=== PATIENT | female | born 1975 | race Hispanic/Latino ===

== ENCOUNTER 2020-02-02 06:18 | Emergency (ER) | payer SELFPAY ==
[2020-02-02 06:50] LABS: Absolute Lymphocytes (CBC) 2.7 K/uL (0.7-4.9); Basophils % 0.7 % (0-1.3); Hematocrit 35.6 % (36.0-45.0); MPV 9.8 fL (7.6-11.3); RBC Red Blood Cell Count 4.43 M/uL (3.86-4.86)
[2020-02-02 07:19] LABS: Urine Blood 3+ (NEG); Urine Glucose NEGATIVE (NEG); Urine Protein 1+ (NEG); Urine Specific Gravity >1.030 (1.005-1.030)
[2020-02-02 07:19] LABS: Urine Specific Gravity >1.030 (1.005-1.030)
[2020-02-02] MEDS ORDERED: KETOROLAC 30 MG/ML INJ ONE (07:21)
[2020-02-02] MEDS ORDERED: ONDANSETRON 4 MG/2 ML VIAL ONE (07:21)
[2020-02-02 07:23] LABS: ALT/SGPT 17 U/L (12-78); AST/SGOT 15 U/L (15-37); Albumin 3.1 g/dL (3.4-5.0); Alkaline Phosphatase 43 U/L (45-117); BUN Blood Urea Nitrogen 10 mg/dL (7-18); Bicarbonate 23 mmol/L (21-32); Bilirubin Direct < 0.1 mg/dL (0-0.2); Bilirubin Total 0.2 mg/dL (0.2-1.0); Glucose Level 145 mg/dL (74-106); Lipase 67 U/L (73-393); Potassium 3.4 mmol/L (3.5-5.1); Protein, Total 7.1 g/dL (6.4-8.2); Sodium Level 140 mmol/L (136-145)
--- NOTE | 2020-02-02 07:28 | RAD REPORT ---
EXAM DESCRIPTION: CT - Stone Protocol - 02/02/2020 7:06 am CLINICAL HISTORY: ABD PAIN COMPARISON: No comparisons TECHNIQUE: Axial 5 mm thick images were obtained without oral or IV contrast. The [id number] span s the entirety of the system including uppermost abdomen and lung bases. All CT scans are performed using dose optimization technique as appropriate and may include automated exposure control or mA/KV adjustment according to patient size. FINDINGS: Mild to moderate right-sided hydronephrosis is present secondary to a calcification in the right mid ureter. There is respiratory motion during the examination blurring the images at the leve l of the obstructing stone. This may be a single 5 millimeter stone or possibly 2 abutting 4-5 mm sto jaime. When viewed on a KUB projection the obstructing stone or stones are in proximity to the L4 right transverse process. Phleboliths are present. There is a 6 millimeter calcification in the right pelv is in proximity to the right ureter. This is probably not ureter in location. Between this calcificat ion and the obstructing mid ureter calcification the ureter is normal in size. No other obstructing or nonobstructing calculi. No suspicious renal masses. Isodense masses and pyelo nephritis are not excluded on a stone protocol CT scan. No significant adrenal finding. No urinary bl adder suspicious finding. Uterus and ovaries show no suspicious findings. Liver is normal in size. Multiple round low-density masses are present in the liver parenchyma. These are homogeneous fluid attenuation and are believed to be incidental cysts. Spleen and pancreas show no suspicious findings. No gallbladder or biliary tree abnormality identified. No suspicious bowel findings. No hernia, mass or bulky lymphadenopathy noted. No free air, free fluid or inflammatory stranding. No significant bony abnormality. IMPRESSION: Obstructing calcification present mid right ureter causing mild to moderate dilatation o f the proximal right collecting system. Exam has respiratory motion artifact blurring the images at the level of the obstructing calcificatio n. This could be a single 5 mm obstructing calculus or 2 abutting 4-5 mm calculi. When viewed from a KUB projection, the obstructing stone or stones are in proximity to the L4 right t ransverse process. Isodense masses and pyelonephritis are not excluded on stone protocol technique.
[2020-02-02] MEDS ORDERED: Magnesium Sulfate 2gm IVPB 2 G/50 ML BAG IV ONE (08:04)
[2020-02-02] MEDS ORDERED: TAMSULOSIN 0.4 MG SR CAP ONE (08:04)
--- NOTE | 2020-02-02 08:21 | ER ---
Nurse's Notes [facility] Name: Nataly Silverman Age: 44 yrs Sex: Female : 1975 Arrival Date: 02/02/2020 Time: 06:21 Bed 4 Private MD: Diagnosis: Calculus of ureter Presentation: 02/01 06:32 Chief complaint: Patient states: Reports she woke up with urinary frequency but could ea only urinate a little at a time. Pt reports after urinating her right lower abdomen started hurting and vomited bile x 1. Coronavirus screen: Proceed with normal triage. Ebola Screen: No symptoms or risks identified at this time. Initial Sepsis Screen: Does the patient meet any 2 criteria? No. Patient's initial sepsis screen is negative. Does the patient have a suspected source of infection? No. Patient's initial sepsis screen is negative. Risk Assessment: Do you want to hurt yourself or someone else? Patient reports no desire to harm self or others. Onset of symptoms was February 02, 2020. 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 - Social history:: Smoking status: Patient denies any tobacco usage or history of. Screenin:35 Abuse screen: Denies threats or abuse. Nutritional screening: No deficits noted. ea Tuberculosis screening: No symptoms or risk factors identified. Fall Risk None identified. Assessment: 06:36 General: Appears uncomfortable, Behavior is calm, cooperative, appropriate for age. ea Pain: Complains of pain in right lower quadrant. Neuro: Level of Consciousness is awake, alert, obeys commands, Oriented to person, place, time, situation. Cardiovascular: Patient's skin is warm and dry. Respiratory: Airway is patent Respiratory effort is even, unlabored, Respiratory pattern is regular, symmetrical. Derm: Skin is pink, warm \T\ dry. 07:10 General: Appears in no apparent distress. comfortable, Behavior is calm, cooperative. rb1 Pain: Complains of pain in right lower quadrant Pain currently is 4 out of 10 on a pain scale. Pain began 0530 this morning. Neuro: Level of Consciousness is awake, alert, obeys commands, Oriented to person, place, time, situation. Cardiovascular: Patient's skin is warm and dry. Respiratory: Airway is patent Respiratory effort is even, unlabored, Respiratory pattern is regular, symmetrical. GI: Reports nausea. : No signs and/or symptoms were reported regarding the genitourinary system. 08:00 Reassessment: Patient appears in no apparent distress at this time. Patient and/or rb1 family updated on plan of care and expected duration. Pain level reassessed. Patient is alert, oriented x 3, equal unlabored respirations, skin warm/dry/pink. Patient states symptoms have improved. 08:22 Reassessment: Discharge pending due to Magnesium infusing. rb1 09:09 Reassessment: Patient appears in no apparent distress at this time. No changes from rb1 previously documented assessment. Vital Signs: 06:32 BP 153 / 64; Pulse 64; Resp 18; Temp 97.4; Pulse Ox 100% ; Weight 58.97 kg; Height 5 ea ft. 2 in. (157.48 cm); Pain 9/10; 07:30 BP 140 / 86; Pulse 62; Resp 17; Pulse Ox 99% ; rb1 08:30 BP 112 / 80; Pulse 69; Resp 16; Pulse Ox 100% ; rb1 09:08 BP 107 / 68; Pulse 67; Resp 17; Pulse Ox 97% ; rb1 06:32 Body Mass Index 23.78 (58.97 kg, 157.48 cm) ea ED Course: 06:21 Patient arrived in ED. ds1 06:24 Gauri Monson FNP-C is PHCP. kb 06:24 Eliezer Dick MD is Attending Physician. kb 06:34 Triage completed. ea 06:35 Arm band placed on right wrist. Patient placed in an exam room, on a stretcher, on ea pulse oximetry. 06:35 Patient has correct armband on for positive identification. Bed in low position. Call ea light in reach. Side rails up X 1. Pulse ox on. NIBP on. 06:41 Inserted saline lock: 20 gauge in right antecubital area, using aseptic technique. ds4 Blood collected. 06:58 Basic Metabolic Panel Sent. ds4 06:58 Hepatic Function Sent. ds4 06:59 Lipase Sent. ds4 06:59 Urine Dipstick--Ancillary (enter results) Sent. ds4 07:00 Urine Dipstick--Ancillary (enter results) Sent. ds4 07:00 Urine Dipstick--Ancillary (enter results) Sent. ds4 07:00 Urine --Ancillary (enter results) Sent. ds4 07:06 CT Stone Protocol In Process Unspecified. EDIA 07:12 Priyanka Douglas, RN is Primary Nurse. rb1 09:09 No provider procedures requiring assistance completed. IV discontinued, intact, rb1 bleeding controlled, No redness/swelling at site. Pressure dressing applied. Administered Medications: 07:21 Drug: TORadol - Ketorolac 15 mg Route: IVP; Site: right antecubital; rb1 07:35 Follow up: Response: No adverse reaction; Pain is decreased rb1 07:21 Drug: Zofran (Ondansetron) 4 mg Route: IVP; Site: right antecubital; rb1 07:35 Follow up: Response: No adverse reaction; Nausea is decreased rb1 08:06 Drug: Magnesium Sulfate 2 grams Route: IVPB; Infused Over: 1 hrs; Site: right rb1 antecubital; 09:03 Follow up: IV Status: Completed infusion rb1 08:06 Drug: Flomax 0.4 mg Route: PO; rb1 08:37 Follow up: Response: No adverse reaction rb1 08:33 Drug: morphine 4 mg Route: IVP; Site: right antecubital; rb1 08:48 Follow up: Response: No adverse reaction; Pain is decreased rb1 Outcome: 08:21 Discharge ordered by . kb 09:09 Discharged to home via wheelchair, with family. rb1 09:09 Condition: stable 09:09 Discharge instructions given to patient, Instructed on discharge instructions, follow up and referral plans. medication usage, Demonstrated understanding of instructions, follow-up care, medications, Prescriptions given X 3. 09:10 Patient left the ED. rb1 Signatures: Dispatcher [employer] EDMS Gauri Monson, NEUROSURGICAL PHYSICIAN ASSISTANTMelissaC NEUROSURGICAL PHYSICIAN ASSISTANT-Bertha Carter ds1 Mike Nova ds4 Priyanka Douglas, RN RN rb1 Zamzam Burgess RN RN ea
--- NOTE | 2020-02-02 08:22 | EDPHYS ---
Physician Documentation [facility] Name: Nataly Silverman Age: 44 yrs Sex: Female : 1975 Arrival Date: 02/02/2020 Time: 06:21 Bed 4 Private MD: ED Physician Eliezer Dick HPI: 02/01 06:54 This 44 yrs old Female presents to ER via Ambulatory with complaints of Lower kb abd Pain. 06:55 The patient presents with abdominal pain in the right upper quadrant, right lower kb quadrant. Onset: The symptoms/episode began/occurred this morning. The symptoms do not radiate. Associated signs and symptoms: Pertinent positives: nausea and vomiting, urinary frequency, but only small amounts. The symptoms are described as achy. Modifying factors: The symptoms are alleviated by nothing, the symptoms are aggravated by nothing. Severity of pain: At its worst the pain was moderate in the emergency department the pain is unchanged. The patient has not experienced similar symptoms in the past. The patient has not recently seen a physician. 07:00 Pt woke up with right lateral abd pain, urinary frequency with small amounts, nausea kb and vomiting x1. Denies fever. . 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 - Social history:: Smoking status: Patient denies any tobacco usage or history of. ROS: 06:51 Constitutional: Negative for fever, chills, and weight loss, Neck: Negative for injury, kb pain, and swelling, Cardiovascular: Negative for chest pain, palpitations, and edema, Respiratory: Negative for shortness of breath, cough, wheezing, and pleuritic chest pain, Back: Negative for injury and pain, MS/Extremity: Negative for injury and deformity, Skin: Negative for injury, rash, and discoloration, Neuro: Negative for headache, weakness, numbness, tingling, and seizure. 06:51 Abdomen/GI: Positive for abdominal pain, of the anterior aspect of right lateral abdomen. 06:51 : Positive for urinary frequency, small amounts. Exam: 06:51 Constitutional: This is a well developed, well nourished patient who is awake, alert, kb and in no acute distress. Head/Face: Normocephalic, atraumatic. Chest/axilla: Normal chest wall appearance and motion. Nontender with no deformity. No lesions are appreciated. Cardiovascular: Regular rate and rhythm with a normal S1 and S2. No gallops, murmurs, or rubs. Normal PMI, no JVD. No pulse deficits. Respiratory: Lungs have equal breath sounds bilaterally, clear to auscultation and percussion. No rales, rhonchi or wheezes noted. No increased work of breathing, no retractions or nasal flaring. Back: No spinal tenderness. No costovertebral tenderness. Full range of motion. Skin: Warm, dry with normal turgor. Normal color with no rashes, no lesions, and no evidence of cellulitis. MS/ Extremity: Pulses equal, no cyanosis. Neurovascular intact. Full, normal range of motion. Neuro: Awake and alert, GCS 15, oriented to person, place, time, and situation. Cranial nerves II-XII grossly intact. Motor strength 5/5 in all extremities. Sensory grossly intact. Cerebellar exam normal. Normal gait. 06:51 Abdomen/GI: Inspection: abdomen appears normal, Bowel sounds: normal, in all quadrants, Palpation: soft, in all quadrants, mild abdominal tenderness, in the anterior aspect of right lateral abdomen and right upper quadrant. Vital Signs: 06:32 BP 153 / 64; Pulse 64; Resp 18; Temp 97.4; Pulse Ox 100% ; Weight 58.97 kg; Height 5 ea ft. 2 in. (157.48 cm); Pain 9/10; 07:30 BP 140 / 86; Pulse 62; Resp 17; Pulse Ox 99% ; rb1 08:30 BP 112 / 80; Pulse 69; Resp 16; Pulse Ox 100% ; rb1 09:08 BP 107 / 68; Pulse 67; Resp 17; Pulse Ox 97% ; rb1 06:32 Body Mass Index 23.78 (58.97 kg, 157.48 cm) ea MDM: 06:24 Patient medically screened. kb 06:54 Data reviewed: vital signs, nurses notes. Data interpreted: Pulse oximetry: on room air kb is 100 %. Interpretation: normal. 08:21 Counseling: I had a detailed discussion with the patient and/or guardian regarding: the kb historical points, exam findings, and any diagnostic results supporting the discharge/admit diagnosis, lab results, radiology results, the need for outpatient follow up, a urologist, to return to the emergency department if symptoms worsen or persist or if there are any questions or concerns that arise at home. 02/01 06:32 Order name: Basic Metabolic Panel; Complete Time: 07:25 kb 02/01 06:32 Order name: CBC with Diff; Complete Time: 06:55 kb 02/01 06:32 Order name: Hepatic Function; Complete Time: 07:25 kb 02/01 06:32 Order name: Lipase; Complete Time: 07:25 kb 02/01 06:58 Order name: Urine Dipstick--Ancillary (enter results); Complete Time: 07:21 ds4 02/01 06:59 Order name: Urine --Ancillary (enter results); Complete Time: 07:21 ds4 02/01 06:32 Order name: IV Saline Lock; Complete Time: 06:57 kb 02/01 06:32 Order name: Labs collected and sent; Complete Time: 06:57 kb 02/01 06:32 Order name: CT Stone Protocol; Complete Time: 07:35 kb 02/01 06:32 Order name: Urine Dipstick-Ancillary (obtain specimen); Complete Time: 06:57 kb Administered Medications: 07:21 Drug: TORadol - Ketorolac 15 mg Route: IVP; Site: right antecubital; rb1 07:35 Follow up: Response: No adverse reaction; Pain is decreased rb1 07:21 Drug: Zofran (Ondansetron) 4 mg Route: IVP; Site: right antecubital; rb1 07:35 Follow up: Response: No adverse reaction; Nausea is decreased rb1 08:06 Drug: Magnesium Sulfate 2 grams Route: IVPB; Infused Over: 1 hrs; Site: right rb1 antecubital; 09:03 Follow up: IV Status: Completed infusion rb1 08:06 Drug: Flomax 0.4 mg Route: PO; rb1 08:37 Follow up: Response: No adverse reaction rb1 08:33 Drug: morphine 4 mg Route: IVP; Site: right antecubital; rb1 08:48 Follow up: Response: No adverse reaction; Pain is decreased rb1 Disposition: 17:38 Co-signature as Attending Physician, Eliezer Dick MD I agree with the assessment and tw4 plan of care. Disposition: 02/02/20 08:21 Discharged to Home. Impression: Calculus of ureter. - Condition is Stable. - Discharge Instructions: Kidney Stones, Dyty-ya-Ikjs, Dietary Guidelines to Help Prevent Kidney Stones. - Prescriptions for Zofran 4 mg Oral Tablet - take 1 tablet by ORAL route every 6 hours As needed; 20 tablet. Flomax 0.4 mg Oral Capsule, Sust. Release 24 hr - take 1 capsule by ORAL route once daily; 10 capsule. Diclofenac Sodium 75 mg Oral Tablet, Delayed Release (E.C.) - take 1 tablet by ORAL route 2 times per day As needed; 30 tablet. - Medication Reconciliation Form, Thank You Letter, Antibiotic Education, Prescription Opioid Use form. - Follow up: Emergency Department; When: As needed; Reason: Worsening of condition. Follow up: Private Physician; When: 2 - 3 days; Reason: Recheck today's complaints, Continuance of care, Re-evaluation by your physician. Signatures: Dispatcher [employer] EDGauri Hoffmann, SHAWN-C COMMERCIAL LOAN ASSISTANT-CkPriyanka Patino, RN RN rb1 Zamzam Burgess RN RN ea Wadley, Terrence, MD MD tw4 Corrections: (The following items were deleted from the chart) 09:10 08:21 02/02/2020 08:21 Discharged to Home. Impression: Calculus of ureter. Condition is rb1 Stable. Forms are Medication Reconciliation Form, Thank You Letter, Antibiotic Education, Prescription Opioid Use. Follow up: Emergency Department; When: As needed; Reason: Worsening of condition. Follow up: Private Physician; When: 2 - 3 days; Reason: Recheck today's complaints, Continuance of care, Re-evaluation by your physician. kb
[2020-02-02] MEDS ORDERED: MORPHINE 4 MG/ML SYR ONE (08:38)
[2020-02-02 09:19] VITALS: TEMP 97.4
[2020-02-02 09:23] VITALS: BP 107/68; O2SAT 97
== END 2020-02-02 09:10 | disposition home or self-care (01) ==
LOC: ER 06:18
DX: N20.1 Calculus of ureter (principal)
CPT/HCPCS: 36415; 74176; 76377; 80048; 80076; 81003; 81025; 83690; 85025; 96365; 96375; 99284; J2405; J3475

== ENCOUNTER 2020-02-05 22:33 | Emergency (ER) | payer SELFPAY ==
--- OUTSIDE RECORDS SUMMARY | 2020-02-05 22:35 | XMS REPORT | Summary of Care ---
:1975 Author Organization [facility] Address [address] [place] [id number] Care Team Providers Name Role Phone Lia Faith [facility] Primary Care Provider [phone] Reason for Visit Reason Comments NURSE VISIT Encounter Details Date Type Department Care Team Description 12/19/2019 Nurse Visit [facility]- Donovan Faith, [facility] [address] [place] [address] Other general [place] Visit, [facility] Nurse counseling and advice [address] [facility] [place] management [id number] Allergies No Known Allergiesdocumented as of this encounter (statuses as of 12/19/2019) Medications Medication Sig Dispensed Refills Start Date End Date Status metroNIDAZOLE 500 mg Take 1 tablet by 14 tablet 0 09/02/2019 Active tabletIndications: BV mouth 2 (two) (bacterial vaginosis) times daily. norgestimate-ethinyl Take 1 tablet by 3 Package 0 12/19/2019 Active estradiol (ORTHO mouth daily. TRI-CYCLEN, 28,) 0.18/0.215/0.25 mg-35 mcg (28) tabletIndications: control counseling documented as of this encounter (statuses as of 12/19/2019) Active Problems Problem Noted Date Other general counseling and advice for contraceptive management 09/02/2019 Amenorrhea 08/15/2019 Abnormal vaginal bleeding 07/30/2017 documented as of this encounter (statuses as of 12/19/2019) Resolved Problems Problem Noted Date Resolved Date Unsatisfactory cervical Papanicolaou smear 12/23/2017 01/10/2019 Screening for STDs (sexually transmitted diseases) 5 07/30/2017 Other malaise and fatigue 03/01/2015 07/30/2017 Encounter for routine gynecological examination 03/01/2015 07/30/2017 Overview: ICD10 Diagnosis Term Bottled Beverage Inspector Utility Surveillance of previously prescribed contraceptive method 0 03/01/2015 07/30/2017 Overview: ICD10 Diagnosis Term Bottled Beverage Inspector Utility Breast pain 11/17/2014 03/01/2015 documented as of this encounter (statuses as of 12/19/2019) Immunizations Name Administration Dates Next Due Rubella 01/01/2005 Td 09/14/2001 Tdap 02/17/2014 documented as of this encounter Social History Tobacco Use Types Packs/Day Years Used Date Never Smoker Smokeless Tobacco: Never Used Alcohol Use Drinks/Week oz/Week Comments No Sex Assigned at Date Recorded Not on file Job Start Date Occupation Industry Not on file Not on file Not on file Travel History Travel Start Travel End No recent travel history available. documented as of this encounter Last Filed Vital Signs Not on filedocumented in this encounter Patient Instructions Patient InstructionsAfsaneh Roblero LVN - 12/19/2019 8:30 AM CDT Patient Education Control de la natalidad: La pldora anticonceptiva Las pldoras anticonceptivas contienen hormonas que ayudan a prevenir el embarazo impidiendo que los ovarios liberen el vulo pawel. Las pldoras se consiguen con receta de un proveedor de atencin mdica. Hay muchos tipos de pldoras anticonceptivas; si usted tiene efectos secundarios con cierta pldora, hable con mack proveedor de atencin mdica para que le receten jeane pldora que funcione mejor para usted. Tasa de embarazo Hable con mack proveedor de atencin mdica acerca de la eficacia de kvng mtodo de control de la natalidad. Financial Services Sales Representative usar la pldora Tmese jeane pldora diaria, a aproximadamente la misma hora todos los reina. Siga las recomendaciones de mack proveedor de atencin mdica sobre cundo comenzar mack primer paquete de pldoras. Es posible que al principio tenga que usar otro mtodo de control de la natalidad por jeane semana o ms. Sepa lo que debe hacer si se le olvida tomarse jeane pldora. (Consulte con mack proveedor de atencin mdica o dominique las indicaciones del envase.) Si se salta ms de jeane pldora, paras vez necesite usar un mtodo adicional de control de la natalidad por jeane semana o ms. Ventajas [place]aja tasa de embarazo. No se interrumpe el acto sexual. Fcil de usar. Puede ayudar a regularizar las menstruaciones. Puede reducir el riesgo de quistes ovricos y ciertos tipos de cncer. Puede aliviar los clicos menstruales, reducir el flujo menstrual y mejorar el acn. Desventajas No ofrece proteccin contra las enfermedades de transmisin sexual (ETS). El mtodo requiere betzy jeane pldora puntualmente todos los reina. Paras vez sea menos eficaz si se efraín con otros medicamentos. Consulte con mack farmacutico. Puede producir efectos secundarios torie nuseas, aumento de peso, sensibilidad en los senos, cansancio o cambios en el estado de sandhya. (Generalmente estos sntomas desaparecen al cabo de yanni meses.) Puede aumentar el riesgo de cogulos de alexia, ataque al corazn o ataque al cerebro. Betzy la pldora podra no ser lo ms indicado para usted si Fuma y tiene ms de 35 aos. Tiene hipertensin o jeane enfermedad de la vescula biliar, el hgado o el corazn. Tiene diabetes, migraas, sangrado o problemas de las venas. (En estos casos, usted debe hablar de los riesgos con mack mdico.) [id number] [employer] [place] [address]. Todos los derechos reservados. Esta informacin no pretende sustituir la atencin mdica profesional. Slo mack mdico puede diagnosticar y tratar un problema de kathleen. documented in this encounter Progress Notes Afsaneh Roblero LVN - 12/19/2019 8:30 AM CDTPatient desires to continue with OCP for contraception. OCP was given by drive through method without obtaining vital signs per institutional guidelines for patients with no significant medical historyor risk factors due to weather (COVID-19). Patient denies headaches, visual disturbances, or SOB. I have also reviewed use, side effects and effectiveness of this control method. Patient verbalized no side effects at this time and desires to continue with method. Constitutional: Alert and no distress Respiratory: Breathing comfortably Neurology: Answers questions appropriately Psychological: Affect Normal Patient present in clinic for OCP refill. Dispensed OCPs from clinic stock x 6 Name: Tri-Previfem LOT: [id number] Cont:883- [id number] Exp:07/2021. Patient provided with education both written and verbal on control method chosen. Instructed patient to use a back up method for one month. Educated patient to RTC in 6 months for refill/WWE visit. Patient verbalized understanding. documented in this encounter Plan of Treatment Date Type Specialty Care Team Description 02/22/2020 Office Visit [facility] Devon Faith, [facility] [address] [id number] 15 [phone] Health Maintenance Due Date Last Done Comments Breast Cancer Screening 10/02/2016 10/02/2015 (MAMMOGRAM) INFLUENZA VACCINE (#1) 2020 Postponed from 05/15/2019 (Refu sed) PAP SMEAR 01/20/2021 01/20/2018, 11/18/2017, 02/17/2014, Additional history exists DTaP,Tdap,and Td Vaccines 02/18/2024 02/17/2014, 09/14/2001 (2 - Td) PNEUMOCOCCAL 0-64 YEARS Aged Out No longe r eligible COMBINED SERIES based on patient 's age to complete this topic documented as of this encounter Results Not on filedocumented in this encounter Visit Diagnoses Diagnosis Other general counseling and advice for contraceptive management documented in this encounter Insurance Payer Benefit Plan / Subscriber ID Effective Dates Phone Addre ss Type Group [facility] PLANNING [id number] 2019-[place] [employer] PLANNING KIARRA KIARRA [phone]% ent [id number] [place] [address] documented as of this encounter Advance Directives Name Relationship Healthcare Agent Relationship Co mmunication Enzoclaudio PabonSenthil Spouse Primary healthcare agent Bonita Silverman Mother Primary healthcare agent
--- OUTSIDE RECORDS SUMMARY | 2020-02-05 22:35 | XMS REPORT | Summary of Care ---
:1975 Author Organization [facility] Address [address] [place] [id number] Care Team Providers Name Role Phone Lia Faith [facility] Primary Care Provider [phone] Reason for Visit Reason Comments Appointment tele Encounter Details Date Type Department Care Team Description 12/19/2019 Telephone [facility]- Lia Faith, Appointment (tele) [facility] [address] [id number] [facility] [phone] [place], [place] [address] [phone] Allergies No Known Allergiesdocumented as of this encounter (statuses as of 12/19/2019) Medications Medication Sig Dispensed Refills Start Date End Date Status norgestimate-ethinyl Take 1 tablet by 3 Package 0 08/15/2019 Active estradiol (ORTHO mouth daily. TRI-CYCLEN, 28,) 0.18/0.215/0.25 mg-35 mcg (28) tabletIndications: control counseling metroNIDAZOLE 500 mg Take 1 tablet by 14 tablet 0 09/02/2019 Active tabletIndications: BV mouth 2 (two) (bacterial vaginosis) times daily. 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 Utility Surveillance of previously prescribed contraceptive method 0 03/01/2015 07/30/2017 Overview: ICD10 Diagnosis Term Supervisor Silvering Department Utility Breast pain 11/17/2014 03/01/2015 documented as [...] Signs Not on filedocumented in this encounter Plan of Treatment Health Maintenance Due Date Last Done Comments [...] Results Not on filedocumented in this encounter Insurance Payer Benefit Plan / Subscriber ID Effective Dates Phone Addre ss Type Group [facility] FAMILY FAMILY PLANNING [id number] 2019-[place] PLANNING KIARRA KIARRA [phone] ent [id number] [place] [address] documented as of this encounter Advance Directives Name Relationship Healthcare Agent Relationship Co mmunication Enzoclaudio Ndiaye Spouse Primary healthcare agent Bonita Silverman Mother Primary healthcare agent [phone] (Clarence)
--- OUTSIDE RECORDS SUMMARY | 2020-02-05 22:35 | XMS REPORT | Summary of Care ---
:1975 Author Organization [facility] Address [address] [place] [address] Care Team Providers Name Role Phone Lia Faith [facility] Primary Care Provider Reason for Visit Reason Comments CONTROL televisit Encounter Details Date Type Department Care Team Description 12/19[facility] Ot er general counseling and advice for contraceptive management (Primary Dx); Zia Boss, control counseling [address] [place], [place] [address] [phone] [place] [address] Allergies No Known Allergiesdocumented as of this encounter (statuses as of 12/19/2019) Medications Medication Sig Dispensed Refills Start Date End Date Status metroNIDAZOLE 500 Take 1 14 tablet 0 09/02/2019 A ctive mg tablet by tabletIndications: mouth 2 BV (bacterial (two) times vaginosis) daily. norgestimate-ethiny Take 1 3 Package 0 12/19/2019 Active l estradiol (ORTHO tablet by TRI-CYCLEN, 28,) mouth daily. 0.18/0.215/0.25 mg-35 mcg (28) tabletIndications: control counseling norgestimate-ethiny Take 1 3 Package 0 08/15/2019 Discontinued l estradiol (ORTHO tablet by 0 ( Reorder) TRI-CYCLEN, 28,) mouth daily. 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 Communication with patient was conducted via Telephone. Location of Patient: Home Location of Provider: Clinic Date of Service: 12/19/2019 Chief Complaint: control HPI: Nataly Silverman is a 44 year old female with Past Medical History: Diagnosis Date Amenorrhea 08/15/2019 Anemia Screening for STDs (sexually transmitted diseases) 03/01/2015 The patient visit was conducted today via telehealth. She reports she desires to continue her ocp. She reports she took her last pill on Thursday and she reports she is due for her menses to start on this week. She reports her last intercourse was this past Thursday. She denies having any issues or concerns today. MEDICATIONS: Current Outpatient Medications Medication Sig Dispense Refill norgestimate-ethinyl estradiol (ORTHO TRI-CYCLEN, 28,) 0.18/0.215/0.25 mg-35 mcg (28) tablet Take 1 tablet by mouth daily. 3 Package 0 metroNIDAZOLE 500 mg tablet Take 1 tablet by mouth 2 (two) times daily. 14 tablet 0 No current facility-administered medications for this visit. ROS Constitutional: negative Eyes: negative Ears: negative Nose/Sinuses: negative Mouth/Throat: negative Cardiovascular: negative Respiratory: negative Gastrointestinal: negative Genitourinary: negative Musculoskeletal: negative Integumentary: negative Neuro: negative Psych: negative Endocrine: negative Hem/Lymph: negative Allergy/Immunology: negative TELEHEALTH EXAM Constitutional: alert and in no distress Respiratory: breathing comfortably Neuro: answers questions appropriately Psych: normal affect ASSESSMENT/ PLAN Nataly Silverman is a 44 year old female with PMH as above presenting with: Other general counseling and advice for contraceptive management (primary encounter diagnosis) Comment: as ordered future complete when patient arrives to collect control Plan: POCT TEST, control counseling Comment: as ordered Plan: norgestimate-ethinyl estradiol (ORTHO TRI-CYCLEN, 28,) 0.18/0.215/0.25 mg-35 mcg (28) tablet After visit summary (AVS ) documentation will be available through [email or web address] for this encounter. A total of 4 minutes was spent on the Telephone with the patient. EMILY Pina documented in this encounter Plan of Treatment Date Type Specialty Care Team Description 02/22/2020 Office Visit [facility] Devon Faith [facility] [address] [place], [place] [address] [phone] Name Type Priority Associated Diagnoses Order S chedule POCT TEST LAB Routine Other it generalist ing and Expected: 12/19/2019, advice for contraceptive Exp ires: 01/18/2020 management Health Maintenance Due Date Last Done Comments [...] general counseling and advice for contraceptive management - Primary control counseling General counseling for initiation of oth er contraceptive measures documented in this encounter Insurance Payer Benefit Plan / Subscriber ID Effective Dates Phone Addre ss Type Group [facility] FAMILY FAMILY PLANNING [id number] 2019-Pres [place] Agency PLANNING KIARRA KIARRA [phone] ent [id number] [place] [address] documented as of this encounter Advance Directives Name Relationship Healthcare Agent Relationship Co mmunication Carrington Ndiaye Spouse Primary healthcare agent Bonita Silverman Mother Primary healthcare agent
--- OUTSIDE RECORDS SUMMARY | 2020-02-05 22:35 | XMS REPORT ---
:1975 Author Organization [facility] t Address [address] [place] [address] Care Team Providers Name Role Phone Visit, Phong Nurse Attending Clinician Unavailable Gera Todd Attending Clinician Problems This patient has no known problems. Allergies, Adverse Reactions, Alerts This patient has no known allergies or adverse reactions. Medications This patient has no known medications. Procedures This patient has no known procedures. Encounters Start End Encounter Admission Attending Care Care Encounter Source Date/Time Date/Time Type Type Clinicians Facility Department ID 2019-12-19 2019-12-19 Nurse Visit, [facility] [id number] 15:16:06 15:31:06 Visit Phong MANAGER ARCHITECTURAL [id number] Nurse REGIONAL [id number] MATERNAL [id number] & CHILD 107 [facility] 2019-12-19 2019-12-19 Telemedici Marcell [facility] [id number] 08:18:49 11:19:59 ne Visit Lia Boss MANAGER ARCHITECTURAL [id number] REGIONAL [id number] MATERNAL [phone] & CHILD 107 [facility] 2019-12-19 2019-12-19 Telephone Marcell ALRODNEY [id number] 00:00:00 00:00:00 Lia C MANAGER ARCHITECTURAL [id number] REGIONAL [id number] MATERNAL [id number] & CHILD 107 [facility] 2019-09-28 2019-09-28 Telephone MCKENNA Faith [id number] 00:00:00 00:00:00 Lia Boss MANAGER ARCHITECTURAL [id number] REGIONAL [id number] MATERNAL [id number] & CHILD 107 [facility] Results This patient has no known results.
[2020-02-05] MEDS ORDERED: KETOROLAC 30 MG/ML INJ ONE (23:31)
[2020-02-05 23:52] LABS: Urine Appearance CLEAR; Urine Bilirubin NEGATIVE (NEG); Urine Blood TRACE (NEG); Urine Color YELLOW; Urine Glucose NEGATIVE (NEG); Urine Protein NEGATIVE (NEG); Urine Specific Gravity <=1.005 (1.005-1.030); Urine Urobilinogen 0.2 mg/dL (0.2-1.0); Urine pH 7.5 (5.0-7.0)
[2020-02-05 23:55] LABS: Absolute Lymphocytes (CBC) 1.2 K/uL (0.7-4.9); Basophils % 0.4 % (0-1.3); Hematocrit 35.7 % (36.0-45.0); MPV 9.7 fL (7.6-11.3); RBC Red Blood Cell Count 4.46 M/uL (3.86-4.86)
[2020-02-05 23:55] LABS: Urine Microscopic Reflex ORDER UMIC
[2020-02-06 00:11] LABS: Urine Blood TRACE (NEG); Urine Glucose NEGATIVE (NEG); Urine Protein NEGATIVE (NEG)
[2020-02-06 01:34] LABS: Urine Bacteria <20 /HPF (<20); Urine Culture Reflex Order NOT NEEDED; Urine RBC <5 /HPF (NONE SEEN)
[2020-02-06 01:50] LABS: Potassium 3.5 mmol/L (3.5-5.1)
--- NOTE | 2020-02-06 02:17 | ER ---
Nurse's Notes [facility] Name: Nataly Silverman Age: 44 yrs Sex: Female : 1975 Arrival Date: 02/05/2020 Time: 22:35 Bed 15 Private MD: Diagnosis: Unspecified renal colic Presentation: 02/04 22:48 Chief complaint: Patient states: Seen here on and diagnosed with kidney stone; lp1 States pain severe tonight to RLQ radiating to right flank; No improvement to pain with medications prescribed. Coronavirus screen: Proceed with normal triage. Ebola Screen: No symptoms or risks identified at this time. 22:48 Method Of Arrival: Wheelchair lp1 22:51 Initial Sepsis Screen: Does the patient meet any 2 criteria? No. Patient's initial lp1 sepsis screen is negative. Does the patient have a suspected source of infection? No. Patient's initial sepsis screen is negative. Risk Assessment: Do you want to hurt yourself or someone else? Patient reports no desire to harm self or others. Onset of symptoms was February 05, 2020 at 20:00. 22:51 Acuity: SURAJ 3 lp1 Triage Assessment: 02/03 23:00 General: Appears in no apparent distress. Behavior is calm, cooperative, appropriate vc for age. Pain: Complains of pain in right low back and right mid back Pain radiates to suprapubic area. Cardiovascular: Capillary refill < 3 seconds Patient's skin is warm and dry. 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 - Social history:: Smoking status: Patient denies any tobacco usage or history of. - Family history:: not pertinent. Screenin:51 Abuse screen: Denies threats or abuse. Denies injuries from another. Nutritional lp1 screening: No deficits noted. Tuberculosis screening: No symptoms or risk factors identified. Fall Risk None identified. Assessment: 23:00 General: Appears in no apparent distress. uncomfortable, Behavior is calm, cooperative, vc appropriate for age. Pain: Complains of pain in right low back and right mid back Pain radiates to suprapubic area Pain currently is 7 out of 10 on a pain scale. Neuro: Level of Consciousness is awake, alert, obeys commands, Oriented to person, place, time, situation, Appropriate for age. Cardiovascular: Capillary refill < 3 seconds Patient's skin is warm and dry. Respiratory: Airway is patent Respiratory effort is even, unlabored, Respiratory pattern is regular, symmetrical. GI: No signs and/or symptoms were reported involving the gastrointestinal system. : Reports pain flank(s), in lower back. 02/05 03:03 Reassessment: Patient appears in no apparent distress at this time. Patient is alert, lp1 oriented x 3, equal unlabored respirations, skin warm/dry/pink. Patient denies pain at this time. Patient states feeling better. Patient states symptoms have improved. Vital Signs: 02/04 22:48 BP 136 / 87; Pulse 79; Resp 18; Pulse Ox 100% on R/A; Pain 8/10; lp1 02/05 03:03 BP 117 / 76; Pulse 76; Resp 18; Temp 97.3; Pulse Ox 100% on R/A; Pain 0/10; lp1 ED Course: 02/03 22:00 Inserted saline lock: 20 gauge in right antecubital area, using aseptic technique. vc Blood collected. Patient maintains SpO2 saturation greater than 95% on room air. 02/04 22:35 Patient arrived in ED. cl3 22:50 Arm band placed on. lp1 22:51 Triage completed. lp1 23:00 Patient has correct armband on for positive identification. Bed in low position. Call vc light in reach. Pulse ox on. NIBP on. 23:09 Sixto Nam DO is Attending Physician. ms3 23:19 Kailey Bender RN is Primary Nurse. vc 02/05 02:12 Report received from YULISA Bonner. lp1 02:16 Laly Reyes MD is Referral Physician. ms3 02:51 No provider procedures requiring assistance completed. lp1 03:03 IV discontinued, No redness/swelling at site. Pressure dressing applied. lp1 Administered Medications: 02/04 23:30 Drug: TORadol - Ketorolac 15 mg Route: IVP; Site: right antecubital; vc 23:44 Follow up: Response: No adverse reaction; Pain is decreased vc Outcome: 02/05 02:16 Discharge ordered by MD. ms3 03:04 Discharged to home ambulatory. lp1 03:04 Condition: good 03:04 Discharge instructions given to patient, Instructed on discharge instructions, follow up and referral plans. Demonstrated understanding of instructions, follow-up care. 03:04 Patient left the ED. lp1 Signatures: Parris Talamantes RN RN lp1 Anshu Avila cl3 Kailey Bender RN RN vc Sixto Nam DO DO ms3
--- NOTE | 2020-02-06 02:17 | EDPHYS ---
Physician Documentation [facility] Name: Nataly Silverman Age: 44 yrs Sex: Female : 1975 Arrival Date: 02/05/2020 Time: 22:35 Bed 15 Private MD: ED Physician Sixto Nam HPI: 02/04 23:18 This 44 yrs old Female presents to ER via Wheelchair with complaints of Flank ms3 Pain dx with Right kidney stone on . 23:18 The patient complains of pain in the right mid back. The patient complains of pain in ms3 the right low back. The pain does not radiate. Onset: The symptoms/episode began/occurred acutely, 4 day(s) ago. Modifying factors: The symptoms are alleviated by nothing. the symptoms are aggravated by nothing. Associated signs and symptoms: The patient has no apparent associated signs or symptoms. Severity of pain: At its worst the pain was moderate in the emergency department the pain has improved. 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 - Social history:: Smoking status: Patient denies any tobacco usage or history of. - Family history:: not pertinent. ROS: 23:18 Constitutional: Negative for fever, and chills. Eyes: Negative for injury, pain, ms3 redness, and discharge, ENT: Negative for injury, pain, and discharge, Neck: Negative for injury, pain, and swelling, Cardiovascular: Negative for chest pain, and palpitations. Respiratory: Negative for shortness of breath, cough, wheezing, and pleuritic chest pain, Back: Negative for injury and pain, MS/Extremity: Negative for injury and deformity, Skin: Negative for injury, rash, and discoloration, Neuro: Negative for headache, weakness, numbness, tingling. Psych: Negative for depression, anxiety, suicide ideation, homicidal ideation, and hallucinations. 23:18 All other systems are negative. Exam: 23:18 Constitutional: This is a well developed, well nourished patient who is awake, alert, ms3 and in no acute distress. Head/Face: Normocephalic, atraumatic. Eyes: Pupils equal round and reactive to light, extra-ocular motions intact. Lids and lashes normal. Conjunctiva and sclera are non-icteric and not injected. Cornea within normal limits. Periorbital areas with no swelling, redness, or edema. Neck: Trachea midline, no cervical lymphadenopathy. Supple, full range of motion without nuchal rigidity, or vertebral point tenderness. No Meningismus. Cardiovascular: Regular rate and rhythm with a normal S1 and S2. No gallops, murmurs, or rubs. Normal PMI, no JVD. No pulse deficits. Respiratory: Lungs have equal breath sounds bilaterally, clear to auscultation and percussion. No rales, rhonchi or wheezes noted. No increased work of breathing, no retractions or nasal flaring. Abdomen/GI: Soft, non-tender, with normal bowel sounds. No distension or tympany. No guarding or rebound. No evidence of tenderness throughout. Back: No spinal tenderness. No costovertebral tenderness. Full range of motion. Skin: Warm, dry with normal turgor. Normal color with no rashes, no lesions, and no evidence of cellulitis. MS/ Extremity: Pulses equal, no cyanosis. Neurovascular intact. Full, normal range of motion. Neuro: Awake and alert, GCS 15, oriented to person, place, time, and situation. Cranial nerves II-XII grossly intact. Motor strength 5/5 in all extremities. Sensory grossly intact. Cerebellar exam normal. Normal gait. Psych: Awake, alert, with orientation to person, place and time. Behavior, mood, and affect are within normal limits. Vital Signs: 22:48 BP 136 / 87; Pulse 79; Resp 18; Pulse Ox 100% on R/A; Pain 8/10; lp1 02/05 03:03 BP 117 / 76; Pulse 76; Resp 18; Temp 97.3; Pulse Ox 100% on R/A; Pain 0/10; lp1 MDM: 02/04 23:18 Differential diagnosis: nephrolithiasis, pyelonephritis, UTI. ms3 23:45 Patient medically screened. ms3 02/05 02:13 Data reviewed: vital signs, nurses notes, lab test result(s). Counseling: I had a ms3 detailed discussion with the patient and/or guardian regarding: the historical points, exam findings, and any diagnostic results supporting the discharge/admit diagnosis, the presence of at least one elevated blood pressure reading (>120/80) during this emergency department visit, lab results, the need for outpatient follow up, a urologist, to return to the emergency department if symptoms worsen or persist or if there are any questions or concerns that arise at home. ED course: Discussed labs with pt. Pt to follow up with Dr Reyes within 2 days. All questions answered. Return precautions discussed to include worsening pain, lightheadedness, or any other concerns. Pt understands/ agrees with plan. Pt improved, nad, non-toxic, ambulatory in ED.. 02/04 23:11 Order name: CBC with Diff; Complete Time: 00:48 ms3 02/04 23:11 Order name: Basic Metabolic Panel; Complete Time: 02:07 ms3 02/04 23:11 Order name: Urinalysis; Complete Time: 02:07 ms3 02/04 23:44 Order name: Urine Dipstick--Ancillary (enter results); Complete Time: 00:48 mw2 02/04 23:44 Order name: Urine --Ancillary (enter results); Complete Time: 00:48 mw2 02/04 23:57 Order name: Urine Microscopic Only; Complete Time: 02:07 EDMS Administered Medications: 02/04 23:30 Drug: TORadol - Ketorolac 15 mg Route: IVP; Site: right antecubital; vc 23:44 Follow up: Response: No adverse reaction; Pain is decreased vc Disposition: 02/06/20 02:16 Discharged to Home. Impression: Unspecified renal colic. - Condition is Stable. - Medication Reconciliation Form, Thank You Letter, Antibiotic Education, Prescription Opioid Use form. - Work release form (02/06/20 03:08). lp1 - Follow up: Laly Reyes MD; When: 1 - 2 days. - Problem is new. - Symptoms have improved. Signatures: Dispatcher [employer] EDMS Parris Talamantes RN RN lp1 Kailey Bender RN RN vc Sixto Nam, DO BURNETT ms3 Corrections: (The following items were deleted from the chart) 02/05 03:04 02:16 02/06/2020 02:16 Discharged to Home. Impression: Unspecified renal colic. lp1 Condition is Stable. Forms are Medication Reconciliation Form, Thank You Letter, Antibiotic Education, Prescription Opioid Use. Follow up: Laly Reyes; When: 1 - 2 days. Problem is new. Symptoms have improved. ms3 04:31 02:13 Co-signature as Attending Physician, Sixto Nam DO ms3 ms3
[2020-02-06 03:15] VITALS: O2SAT 100
[2020-02-06 03:17] VITALS: BP 117/76; TEMP 97.3
== END 2020-02-06 03:04 | disposition home or self-care (01) ==
LOC: ER 22:33
DX: N23 Unspecified renal colic (principal)
CPT/HCPCS: 36415; 80048; 81003; 81015; 81025; 85025; 96374; 99284